=== PATIENT | female | born 1990 | race Two or more races ===

== ENCOUNTER 2019-11-10 08:12 | Outpatient (CLI) | payer BC, OTHER ==
[2019-11-10 09:00] LABS: BASOPHILS % (AUTO) 0.7 % (0.0-2.0); EOSINOPHILS % (AUTO) 1.4 % (0.0-6.0); HEMATOCRIT 41 % (33-45); HEMOGLOBIN 13.5 g/dL (11.5-14.8); LYMPHOCYTES # (AUTO) 2.1 /CMM (0.8-4.8); LYMPHOCYTES % (AUTO) 32.2 % (20.0-44.0); MEAN CORPUSCULAR HGB CONC 33 g/dl (31.0-36.0); MEAN CORPUSCULAR VOLUME 90 fL (82-100); MONOCYTES # (AUTO) 0.3 /CMM (0.1-1.30); MONOCYTES % (AUTO) 4.3 % (2.0-12.0); NEUTROPHILS # (AUTO) 4.1 /CMM (1.8-8.9); NEUTROPHILS % (AUTO) 61.4 % (43.0-81.0); PLATELET COUNT (AUTO) 242 /CMM (150-450); RED BLOOD CELL COUNT(AUTO) 4.52 MIL/uL (4.0-5.2); WHITE BLOOD COUNT (AUTO) 6.6 K/uL (4.3-11.0)
[2019-11-10 09:14] LABS: ALBUMIN 4.1 g/dL (3.4-5.0); BILIRUBIN,TOTAL 0.7 mg/dL (0.2-1.0); CREATININE 1.1 mg/dL (0.6-1.3); POTASSIUM 3.4 mmol/L (3.5-5.1); TOTAL PROTEIN, SERUM 7.9 g/dL (6.4-8.2)
[2019-11-10 09:24] LABS: THYROID STIMULATING HORMONE 3.293 uIU/mL (0.358-3.74)
[2019-11-11 05:08] LABS: PROLACTIN 12.8 ng/mL (4.8-23.3)
== END 2019-11-10 23:59 | disposition home or self-care (01) ==
LOC: LAB 08:12
PROVIDERS: ATTEND Family Medicine
DX: N92.6 Irregular menstruation, unspecified (principal)
CPT/HCPCS: 36415; 80053-TC; 80061-TC; 84146; 84439-TC; 84443-TC; 85025-TC; 86337

== ENCOUNTER 2019-11-13 03:42 | Emergency (ER) | payer BC, OTHER ==
[~2019-11-13] VITALS: Ht 175.3 cm; Wt 95.3 kg
[2019-11-13 03:50] VITALS: BP 155/84
--- NOTE | 2019-11-13 03:54 | NUR ---
DR VERGARA AT BEDSIDE
[2019-11-13] MEDS ORDERED: NEOM/POLY B SULF/HC OTIC SUSP 10 ML BOTTLE LEFT EAR ONE (04:00)
--- NOTE | 2019-11-13 04:52 | NUR ---
Patient discharged to home in stable condition. Written and verbal after care instructions given. Patient verbalizes understanding of instruction.
== END 2019-11-13 04:53 | disposition home or self-care (01) ==
LOC: ER 03:46
DX: H60.92 Unspecified otitis externa, left ear (principal)

== ENCOUNTER 2019-12-05 11:23 | Outpatient (CLI) | payer BC, OTHER ==
[2019-12-05 12:00] LABS: CREATININE 0.9 mg/dL (0.6-1.3); POTASSIUM 4.1 mmol/L (3.5-5.1)
== END 2019-12-05 23:59 | disposition home or self-care (01) ==
LOC: LAB 11:23
PROVIDERS: ATTEND Family Medicine
DX: R73.9 Hyperglycemia, unspecified (principal)
CPT/HCPCS: 36415; 80048-TC